=== PATIENT | female | born 1970 | race Two or more races ===

== ENCOUNTER 2019-04-10 02:18 | Emergency (ER) | payer MEDICAID, OTHER ==
[~2019-04-10] VITALS: Ht 167.6 cm; Wt 108.9 kg
--- NOTE | 2019-04-10 02:30 | NUR ---
TO BED 3 AMBULATROY BIB SON C/O HEADACHE SINCE 2229, DENIES DIZZINES, N/V, BLURRY VISION. PT AAOX4 NO ACUTE DISTRESS NOTED, RESP EVEN AND UNLABORED. PUPILS PERRLA. PT ABLE TO MOVE ALL EXTREMITIES WELL WITH BILATERAL EQUAL SAP ABAP DEVELOPER. PENDING ER MD FONTANEZ.
[2019-04-10] MEDS ORDERED: SUMATRIPTAN SUCCINATE 6 MG/0.5 ML VIAL SQ ONE ×2 (02:49→03:00)
[2019-04-10] MEDS ORDERED: METOCLOPRAMIDE HCL 10 MG/2 ML VIAL ONE (02:50)
[2019-04-10] MEDS ORDERED: METOCLOPRAMIDE HCL 10 MG/2 ML VIAL IV ONE (03:00)
[2019-04-10] MEDS ORDERED: IV NS 0.9% 1,000 ML BAG IV ONE (03:00)
--- NOTE | 2019-04-10 03:10 | NUR ---
pt medicated as ordered. pt son at bedside.
--- NOTE | 2019-04-10 03:54 | NUR ---
Patient discharged to home in stable condition. Written and verbal after care instructions given. Patient verbalizes understanding of instruction. IV removed. Catheter intact and site benign. Pressure and 4x4 applied to site. No bleeding noted. ambulatory with a steady gait noted. pt aaox4 no acute distres snoted, resp even and unlabored. advice pt not to drive or operate any machinery due to pt was given [facility] medicine. pt verbalize understanding.
[2019-04-10 03:56] VITALS: BP 43/69
== END 2019-04-10 03:57 | disposition home or self-care (01) ==
LOC: ER 02:26
DX: R51 Headache (principal)
CPT/HCPCS: 96372; 96374; 99283; J2765; J3030; J7030